=== PATIENT | male | born 1955 | race Caucasian/White ===

== ENCOUNTER 2023-02-16 12:12 | Inpatient (IN) | payer OTHER ==
[~2023-02-16] VITALS: Ht 170.2 cm; Wt 127.0 kg
[2023-02-16 12:25] VITALS: BP_SYST 142; PULSE 85; RESP 18; TEMP 98.3; O2SAT 98
--- NOTE | 2023-02-16 12:59 | NUR ---
Pt bib self from home with bedside. Pt is aaox3, with bilateral lower leg swelling. Pt has fungus to toe nails. Pt states maggots underneath nail bed.
--- NOTE | 2023-02-16 13:30 | NUR ---
ER DR. PEREZ AT THE BEDSIDE EXAMINING PT
--- NOTE | 2023-02-16 13:50 | NUR ---
Blood cultures drawn, prior to administration of antibiotic.
[2023-02-16 14:13] LABS: BASOPHILS # (AUTO) 0.1 K/uL (0.0-0.2); BASOPHILS % (AUTO) 0.7 % (0.0-2.0); EOSINOPHILS # (AUTO) 0.6 K/uL (0.0-0.4); HEMATOCRIT 40.5 % (36-54); HEMOGLOBIN 13.9 g/dL (14.0-18.0); LYMPHOCYTES # (AUTO) 1.3 K/uL (1.0-5.5); LYMPHOCYTES % (AUTO) 17.2 % (20.5-51.5); MEAN CORPUSCULAR HEMOGLOBIN 31 pg (27-31); MEAN CORPUSCULAR HGB CONC 34 % (32-36); MEAN CORPUSCULAR VOLUME 91 fL (79.0-98.0); MONOCYTES # (AUTO) 0.9 K/uL (0.0-1.0); MONOCYTES % (AUTO) 11.9 % (1.7-9.3); NEUTROPHILS # (AUTO) 4.8 K/uL (1.8-7.7); NEUTROPHILS % (AUTO) 62.2 % (40.0-70.0); PLATELET COUNT (AUTO) 313 K/uL (130-430); RED BLOOD CELL COUNT(AUTO) 4.48 MIL/uL (4.2-6.2); WHITE BLOOD COUNT (AUTO) 7.8 K/uL (4.8-10.8)
[2023-02-16 14:34] LABS: CALCIUM 9.7 mg/dL (8.4-11.0); CREATININE 1.2 mg/dL (0.55-1.30)
[2023-02-16 14:39] LABS: ALBUMIN 3.9 g/dL (3.4-4.8); TOTAL BILIRUBIN 0.3 mg/dL (0.0-1.0)
[2023-02-16] MEDS ORDERED: ACETAMINOPHEN 325 MG TABLET PO PRN ×2 (15:45→16:00)
[2023-02-16] MEDS ORDERED: MORPHINE 2 MG/ML INJ. SYRINGE IVP PRN (15:45)
[2023-02-16] MEDS ORDERED: HYDROcodone/ACETAMIN 5-325 MG TAB (NORCO/ VICODIN) PO PRN (15:45)
--- NOTE | 2023-02-16 16:16 | NUR ---
Admit bed requested Patient will be admitted to care of Adrianna Montez Admitted to [facility] unit. Diagnosis CELLULITIS Inpatient (Yes or No) YES Observation (Yes or No) NO Orientation concerns or request close to nursing station (Yes or No) NO Covid Status NA On vent or bipap NO Isolation requirements NO Needs a sitter NO From Home (Yes or if No enter name of facility) HOME Requires Dialysis (Yes or No) NO Med Rec Completed (Yes of No) YES
[2023-02-16] MEDS ORDERED: METF-381 PO (16:19)
[2023-02-16] MEDS ORDERED: SITA1TBM4 PO (16:19)
[2023-02-16] MEDS ORDERED: GLIP10TA11 PO (16:19)
[2023-02-16] MEDS ORDERED: ALBU90AE2 INH (16:19)
--- NOTE | 2023-02-16 16:19 | NUR ---
Medication reconciliation completed with information provided by PATIENT. Any prior medication reconciliation on file was reviewed and corrected.
[2023-02-16] MEDS ORDERED: cefTRIAXone 1 GM IVPB PREMIX 50 ML IV ONE (16:30)
[2023-02-16] MEDS: cefTRIAXone 1 GM IVPB PREMIX 50 ML IV SCH (17:00)
--- NOTE | 2023-02-16 17:10 | NUR ---
CONTACTED [facility] TO GIVE PT REPORT NO ANSWER AT EXT [phone]
--- NOTE | 2023-02-16 17:56 | NUR ---
Patient will be admitted to care of [facility]. Admitted to MED SURG unit. Will go to room 107 A MEDSURG. Belongings list completed. Complete and up to date summary report printed. SBAR report to be given at bedside with opportunity for questions.
[2023-02-16 18:47] VITALS: BP_SYST 135; PULSE 75; RESP 19; TEMP 97.2; O2SAT 94
--- NOTE | 2023-02-16 18:48 | NUR ---
pt arrived to floor from ed @181. VSS, no c/o pain or SOB. Dr. Bettencourt paged for admission orders @4638. oriented to room, call martinez in place, fall precautions in place.
[2023-02-16 19:00] VITALS: BP_SYST 128; PULSE 72; RESP 12; TEMP 97; O2SAT 96
[2023-02-16 20:00] VITALS: BP_SYST 128; PULSE 72; RESP 12; TEMP 97; O2SAT 96
[2023-02-17] VITALS: BP_SYST 127; PULSE 71; RESP 12; TEMP 96.7; O2SAT 94
--- NOTE | 2023-02-17 03:04 | NUR ---
Consultation Paged Reason for Consultation: Cellulitis Was consult called: Y Person who was notified: Chloe Consulting Physician: Mendez Seay Ordering Physician: Adrianna Dodd
--- NOTE | 2023-02-17 04:32 | NUR ---
Dr. Ashraf surgical consult called back for the patient.
[2023-02-17 04:56] LABS: BASOPHILS # (AUTO) 0.1 K/uL (0.0-0.2); BASOPHILS % (AUTO) 0.9 % (0.0-2.0); EOSINOPHILS # (AUTO) 0.6 K/uL (0.0-0.4); EOSINOPHILS % (AUTO) 9.1 % (0.0-4.0); HEMATOCRIT 39.4 % (36-54); HEMOGLOBIN 13.4 g/dL (14.0-18.0); LYMPHOCYTES # (AUTO) 1.5 K/uL (1.0-5.5); LYMPHOCYTES % (AUTO) 22.4 % (20.5-51.5); MEAN CORPUSCULAR HEMOGLOBIN 31 pg (27-31); MEAN CORPUSCULAR HGB CONC 34 % (32-36); MEAN CORPUSCULAR VOLUME 90 fL (79.0-98.0); MONOCYTES # (AUTO) 0.9 K/uL (0.0-1.0); MONOCYTES % (AUTO) 13.3 % (1.7-9.3); NEUTROPHILS # (AUTO) 3.8 K/uL (1.8-7.7); NEUTROPHILS % (AUTO) 54.3 % (40.0-70.0); PLATELET COUNT (AUTO) 281 K/uL (130-430); RED BLOOD CELL COUNT(AUTO) 4.38 MIL/uL (4.2-6.2); WHITE BLOOD COUNT (AUTO) 6.9 K/uL (4.8-10.8)
[2023-02-17 05:28] LABS: ALBUMIN 3.5 g/dL (3.4-4.8); CALCIUM 8.6 mg/dL (8.4-11.0); CREATININE 1.26 mg/dL (0.55-1.30); TOTAL BILIRUBIN 0.4 mg/dL (0.0-1.0)
[2023-02-17 07:15] VITALS: BP_SYST 141; PULSE 67; RESP 16; TEMP 97.8; O2SAT 96
--- NOTE | 2023-02-17 07:15 | NUR ---
OPENING NOTES PATIENT IS RESTING, BREATHING UNLABORED ON RA. NO PAIN, NO DISTRESS, NO SOB REPORTED. ALL NEED MET AT THIS TIME. SAFETY PRECAUTION IN PLACE. ENCOURAGE PATIENT TO USE CALL LIGHT. CALL LIGHT WITHIN REACH. BED ALARM ON. BED LOCKED IN LOWEST POSITION. WILL CONTINUE WITH PLAN OF CARE.
[2023-02-17] MEDS ORDERED: D5W 1,000 ML IV PRN (08:00)
[2023-02-17] MEDS ORDERED: GLUCOSE (DEXTROSE) ORAL GEL -Adults PO PRN (08:00)
[2023-02-17] MEDS ORDERED: DEXTROSE 50% JECT 50 ML DISP.SYRIN IVP PRN (08:00)
[2023-02-17] MEDS: INSULIN LISPRO SLIDING SCALE 100 UNITS/ML, 3 ML VIAL (humaLOG) SUBCUT PRN ×3 (09:25→17:39)
--- NOTE | 2023-02-17 11:16 | NUR ---
CONSULTATION PAGED REASON FOR CONSULTATION: CELLULITIS WAS CONSULT CALLED? Y PERSON WHO WAS NOTIFIED: NAEL CONSULTING PHYSICIAN: ELIE CAMEJO TRANSFER TABLE OPERATOR HELPER SPECIALTY: INFECTIOUS DISEASE TRANSFER TABLE OPERATOR HELPER PHONE NUMBER: [phone] REQUESTING PHYSICIAN: ANETA SABILLON
--- NOTE | 2023-02-17 11:21 | NUR ---
CONSULTATION PAGED REASON FOR CONSULTATION: CELLULITIS WAS CONSULT CALLED? Y PERSON WHO WAS NOTIFIED: INÉS CONSULTING PHYSICIAN: CARMENCITA WRAY MEDICAL TRANSCRIPTION EDITOR SPECIALTY:SURGEON MEDICAL TRANSCRIPTION EDITOR PHONE NUMBER: [phone] REQUESTING PHYSICIAN: ARVIN SABILLON
[2023-02-17] MEDS: NACL 0.9% 1,000 ML IV SCH ×2 (11:26→21:54)
--- NOTE | 2023-02-17 12:00 | NUR ---
ROUNDING NOTES PATIENT IS RESTING, NO PAIN, NO DISTRESS, NO SOB NOTED. ALL NEED MET AT THIS TIME. SAFETY PRECAUTION IN PLACE. CALL LIGHT WITHIN REACH. BED ALARM ON. BED LOCKED IN LOWEST POSITION. WILL CONTINUE WITH PLAN OF CARE.
--- NOTE | 2023-02-17 12:54 | NUR ---
WOUND EVALUATION: Wound Consult received from Dr. Saad Bettencourt. Thank you, Dr. Bettencourt, for the consult. Patient received in a Kalpesh Bed with an IsoFlex RAFAEL mattress, awake, alert, and oriented. Patient is able to turn in bed and transfer independently. Ian Score is a 23. Past Medical History: Diabetes Mellitus, Neuropathy, Hypertension. Recent Labs: WBC 6.9, RBC 4.38, Hgb 13.4, Hct 39.4, Na 133, BUN 23, Creat 1.26, GFR 60, Gluc 174, STP 8.4. Microbiology: Blood culture results x 2 in progress. Urine culture results in progress. Intrinsic factors that delay wound healing: Diabetes Mellitus, Neuropathy, Hyperglycemia. Extrinsic factors that delay wound healing: Decreased mobility. Dr. Peres is on surgical consent. Wound Assessment: 1. Right Great Toe: Wound, present on admission. Wound bed is now closed. No odor, no drainage, no weeping. Toe has mild edema, is shiny, has erythema, and has mild calor. Recommend: [place] perimeter of toe nail/toe nail bed with Betadine. No dressing needed. Perform site care BID. Also recommend: Encourage and assist patient as needed with repositioning every 2 hours with pillow support and off-load pressure areas with pillows for pressure re-distribution. Offload, elevate and float bilateral heels with pillows. Perform skin care and monitor skin integrity Q shift.
[2023-02-17] MEDS: cefTRIAXone 1 GM IVPB PREMIX 50 ML IV SCH (17:46)
[2023-02-17 18:43] VITALS: BP_SYST 141; PULSE 67; RESP 16; TEMP 97.8; O2SAT 96
[2023-02-17 18:44] VITALS: BP_SYST 142; PULSE 95; RESP 16; TEMP 95.2; O2SAT 95
[2023-02-17 19:00] VITALS: O2SAT 96
--- NOTE | 2023-02-17 19:00 | NUR ---
ClOSING NOTES PATIENT IS RESTING, NO PAIN, NO DISTRESS, NO SOB NOTED. ALL NEED MET AT THIS TIME. SAFETY PRECAUTION IN PLACE. CALL LIGHT WITHIN REACH. BED ALARM ON. BED LOCKED IN LOWEST POSITION. WILL ENDORSE TO ASSEMBLY LEAD PERSON NURSE.
[2023-02-17 20:00] VITALS: BP_SYST 127; PULSE 74; RESP 18; TEMP 97.2; O2SAT 94
[2023-02-18 00:30] VITALS: BP_SYST 144; PULSE 69; RESP 19; TEMP 97; O2SAT 98
[2023-02-18] MEDS: INSULIN LISPRO SLIDING SCALE 100 UNITS/ML, 3 ML VIAL (humaLOG) SUBCUT PRN ×3 (00:43→14:07)
[2023-02-18 05:58] LABS: BASOPHILS % (AUTO) 0.7 % (0.0-2.0); EOSINOPHILS # (AUTO) 0.6 K/uL (0.0-0.4); EOSINOPHILS % (AUTO) 9.4 % (0.0-4.0); HEMATOCRIT 39.2 % (36-54); HEMOGLOBIN 13.3 g/dL (14.0-18.0); LYMPHOCYTES # (AUTO) 1.4 K/uL (1.0-5.5); MEAN CORPUSCULAR HEMOGLOBIN 31 pg (27-31); MEAN CORPUSCULAR HGB CONC 34 % (32-36); MEAN CORPUSCULAR VOLUME 91 fL (79.0-98.0); MONOCYTES # (AUTO) 0.9 K/uL (0.0-1.0); MONOCYTES % (AUTO) 13.9 % (1.7-9.3); NEUTROPHILS # (AUTO) 3.3 K/uL (1.8-7.7); PLATELET COUNT (AUTO) 261 K/uL (130-430); RED BLOOD CELL COUNT(AUTO) 4.33 MIL/uL (4.2-6.2); RED CELL DISTRIBUTION WIDTH 12.9 % (9.0-15.0); WHITE BLOOD COUNT (AUTO) 6.2 K/uL (4.8-10.8)
[2023-02-18 06:07] LABS: CALCIUM 8.5 mg/dL (8.4-11.0); CREATININE 1.23 mg/dL (0.55-1.30)
[2023-02-18 08:00] VITALS: O2SAT 96
--- NOTE | 2023-02-18 08:00 | NUR ---
received patient from pm nurse, alert and oriented, able to verbalize needs, no c/o pain or discomfort at this time, iv in lh patent and infusing ns @ 100, wound on great toe open to air, will assume all care of patient
[2023-02-18] MEDS: NACL 0.9% 1,000 ML IV SCH ×2 (08:35→16:57)
[2023-02-18 12:00] VITALS: BP_SYST 142; PULSE 72; RESP 20; TEMP 98; O2SAT 98
[2023-02-18] MEDS: PIPERACILLIN/TAZO 4.5GM/DEX-IS 100 ML IV SCH ×2 (14:09→21:04)
--- NOTE | 2023-02-18 17:00 | NUR ---
iv in left hand leaking, no swelling pain or sign of infiltrate noted, new iv started in lfa
--- NOTE | 2023-02-18 17:58 | NUR ---
patient resting comfortably in bed, no c/o pain or discomfort at this time, iv patent and infusing ns @100ml/hr, will endorse care to pm nurse
[2023-02-18 18:00] VITALS: BP_SYST 140; PULSE 74; RESP 18; TEMP 97.9; O2SAT 95
[2023-02-18 20:00] VITALS: BP_SYST 129; PULSE 74; RESP 18; TEMP 97
[2023-02-19] MEDS: INSULIN LISPRO SLIDING SCALE 100 UNITS/ML, 3 ML VIAL (humaLOG) SUBCUT PRN ×3 (00:02→11:59)
[2023-02-19 00:04] VITALS: BP_SYST 122; PULSE 72; RESP 18; TEMP 96.8; O2SAT 95
[2023-02-19] MEDS: PIPERACILLIN/TAZO 4.5GM/DEX-IS 100 ML IV SCH ×3 (06:08→22:00)
[2023-02-19] MEDS: NACL 0.9% 1,000 ML IV SCH ×3 (06:12→23:15)
--- NOTE | 2023-02-19 06:12 | NUR ---
Closing notes Pt AAOx4, no s/s distress. Blood sugar checked 190, 2 units Humalog administered per protocol. R. toe no drainage, no odor, EMILEE. Call light within reach. To endorse to AM nurse.
[2023-02-19 07:04] LABS: BASOPHILS % (AUTO) 0.8 % (0.0-2.0); EOSINOPHILS # (AUTO) 0.6 K/uL (0.0-0.4); EOSINOPHILS % (AUTO) 9.3 % (0.0-4.0); HEMATOCRIT 39.1 % (36-54); HEMOGLOBIN 13.3 g/dL (14.0-18.0); LYMPHOCYTES # (AUTO) 1.4 K/uL (1.0-5.5); LYMPHOCYTES % (AUTO) 23.4 % (20.5-51.5); MEAN CORPUSCULAR HEMOGLOBIN 31 pg (27-31); MEAN CORPUSCULAR HGB CONC 34 % (32-36); MEAN CORPUSCULAR VOLUME 91 fL (79.0-98.0); MONOCYTES # (AUTO) 0.8 K/uL (0.0-1.0); NEUTROPHILS # (AUTO) 3.2 K/uL (1.8-7.7); NEUTROPHILS % (AUTO) 52.5 % (40.0-70.0); PLATELET COUNT (AUTO) 274 K/uL (130-430); RED BLOOD CELL COUNT(AUTO) 4.32 MIL/uL (4.2-6.2); RED CELL DISTRIBUTION WIDTH 12.8 % (9.0-15.0)
[2023-02-19 07:26] LABS: CALCIUM 8.5 mg/dL (8.4-11.0); CREATININE 1.29 mg/dL (0.55-1.30)
[2023-02-19 07:27] LABS: ERYTHROCYTE SEDIMENTATION RATE 26 MM/HR (0-15)
[2023-02-19 08:00] VITALS: BP_SYST 128; PULSE 76; RESP 17; TEMP 97.3; O2SAT 97
--- NOTE | 2023-02-19 08:00 | NUR ---
OPENING NOTES: RECEIVED BEDSIDE SBAR FROM PM SHIFT NURSE, NO S/S OF ANY DISTRESS, NON LABOR BREATHING ABLE TO MAKE ALL NEEDS KNOWN, BED AT LOW AND LOCKED POSITION CALL LIGHT IN REACH, ALL SAFETY CHECKS DONE AND WILL DO THOUGHT THE DAY, WILL MONITOR AND GIVE MEDS PER ORDERS.
[2023-02-19 10:01] VITALS: O2SAT 97
[2023-02-19 13:21] VITALS: BP_SYST 129; PULSE 68; RESP 16; TEMP 96.8; O2SAT 96
[2023-02-19 18:21] VITALS: BP_SYST 132; PULSE 65; RESP 18; TEMP 97.1; O2SAT 95
--- NOTE | 2023-02-19 18:46 | NUR ---
CLOSING NOTES: PATIENT REMAINED STABLE THOUGHT THE DAY, NO S/S OF ANY DISTRESS, NON LABOR BREATHING, ALL NEEDS WHERE MET TODAY, BED AT LOW AND LOCKED POSITION CALL LIGHT IN REACH, RESTING IN BED WATCHING TV, WILL GIVE PM SHIFT NURSE BEDSIDE SBAR.
[2023-02-19 20:00] VITALS: BP_SYST 141; PULSE 73; RESP 17; TEMP 96.7; O2SAT 95
--- NOTE | 2023-02-19 22:44 | NUR ---
RD Recommendations *Continue on Consistent Carb Diet per MD Rx *Monitor PO intakes, GI, skin, & labs Please refer to RD Assessment (02/19/23) for more details. LEEANN STOCK Addendum: 02/19/23 at [address] Amended: Links added.
[2023-02-20 00:15] VITALS: BP_SYST 132; PULSE 74; RESP 17; TEMP 97.2
[2023-02-20] MEDS: INSULIN LISPRO SLIDING SCALE 100 UNITS/ML, 3 ML VIAL (humaLOG) SUBCUT PRN ×3 (00:24→12:26)
[2023-02-20 06:08] LABS: BASOPHILS % (AUTO) 0.7 % (0.0-2.0); EOSINOPHILS # (AUTO) 0.6 K/uL (0.0-0.4); EOSINOPHILS % (AUTO) 9.6 % (0.0-4.0); HEMATOCRIT 39.9 % (36-54); HEMOGLOBIN 13.4 g/dL (14.0-18.0); LYMPHOCYTES # (AUTO) 1.4 K/uL (1.0-5.5); LYMPHOCYTES % (AUTO) 23.5 % (20.5-51.5); MEAN CORPUSCULAR HEMOGLOBIN 31 pg (27-31); MEAN CORPUSCULAR HGB CONC 34 % (32-36); MEAN CORPUSCULAR VOLUME 91 fL (79.0-98.0); MONOCYTES # (AUTO) 0.8 K/uL (0.0-1.0); MONOCYTES % (AUTO) 12.7 % (1.7-9.3); NEUTROPHILS # (AUTO) 3.2 K/uL (1.8-7.7); NEUTROPHILS % (AUTO) 53.5 % (40.0-70.0); PLATELET COUNT (AUTO) 269 K/uL (130-430); WHITE BLOOD COUNT (AUTO) 6.1 K/uL (4.8-10.8)
[2023-02-20 06:13] LABS: ERYTHROCYTE SEDIMENTATION RATE 19 MM/HR (0-15)
[2023-02-20 06:26] LABS: CALCIUM 8.6 mg/dL (8.4-11.0); CREATININE 1.35 mg/dL (0.55-1.30)
[2023-02-20] MEDS: PIPERACILLIN/TAZO 4.5GM/DEX-IS 100 ML IV SCH (06:38)
[2023-02-20 08:00] VITALS: BP_SYST 144; PULSE 69; RESP 18; TEMP 97.1; O2SAT 97
[2023-02-20] MEDS: NACL 0.9% 1,000 ML IV SCH (09:15)
--- NOTE | 2023-02-20 10:33 | NUR ---
PER DR LOURDES FUNEZ TO D/C HOME, WITH IV, [facility] FOR 7 DAYS OF IV MEDS. PATIENT AWARE. F/U WITH DR FREED IN 1 WEEK
[2023-02-20] MEDS ORDERED: HYDR-3917 PO (10:36)
[2023-02-20 10:56] VITALS: BP_SYST 132; PULSE 78; RESP 18; TEMP 97.9; O2SAT 99
[2023-02-20 11:37] VITALS: O2SAT 98
[2023-02-20] MEDS ORDERED: ERTAPENEM SODIUM 1 GM in NS 50 ML IV SCH (13:00)
--- NOTE | 2023-02-20 17:39 | NUR ---
BS 151 PATIENT REFUSES INSULIN GOING HOME
--- NOTE | 2023-02-20 18:39 | NUR ---
CLOSING NOTES: PATIENT REMAINED STABLE THOUGHT THE DAY NON LABOR BREATHING, NO S/S OF ANY DISTRESS ALL NEEDS WHERE MADE KNOWN, BED AT LOW AND LOCKED POSITION, CALL LIGHT IN REACH, WILL GIVE PM SHIFT NURSE BEDSIDE SBAR.
[2023-02-20 20:00] VITALS: BP_SYST 139; PULSE 70; RESP 18; TEMP 98.1; O2SAT 92
--- NOTE | 2023-02-20 20:00 | NUR ---
NURSE REPORT REPORT OBTAINED FROM DAY SHIFT NURSE AND THIS NURSE ASSUMED CARE. VSS. AFEB. NEEDS MIDLINE BEFORE DISCHARGE HOME. AT BEDSIDE.
[2023-02-20 21:00] VITALS: BP_SYST 139; PULSE 70; RESP 18; TEMP 98.1; O2SAT 92
--- NOTE | 2023-02-20 21:45 | NUR ---
NURSE DISCHARGE NOTES D/C INSTRUCTIONS GIVEN. PATIENT TO CALL THE [facility] FOR ADDRESS IN [place]. APPT IS AT 945 AM. SL REMOVED FROM L FOREARM AND COBAN APPLIED SINCE TAKING THE TAPE OFF WITH THE SL WAS PAINFUL DUE TO PATIENT HAVING PLENTY OF HAIR. DC'D BY W/C WITH THIS NURSE TO CAR. FLAKITO ROD RN
== END 2023-02-20 23:25 | disposition home health service (06) | DRG 603 ==
LOC: SED 12:12 → SMU 15:35
PROVIDERS: ADMIT Specialist; ATTEND Specialist
PROC: 05HY33Z Insertion of Infusion Device into Upper Vein, Percutaneous Approach (ICD-10-PCS; principal; 2023-02-20)
PROC: B54MZZA Ultrasonography of Right Upper Extremity Veins, Guidance (ICD-10-PCS; 2023-02-20)
DX: L03.031 Cellulitis of right toe (principal); E87.1 Hypo-osmolality and hyponatremia; Z68.41 Body mass index [BMI] 40.0-44.9, adult; E11.65 Type 2 diabetes mellitus with hyperglycemia; I10 Essential (primary) hypertension; J45.909 Unspecified asthma, uncomplicated; E66.01 Morbid (severe) obesity due to excess calories; B96.20 Unspecified Escherichia coli [E. coli] as the cause of diseases classified elsewhere; B87.89 Myiasis of other sites; E11.40 Type 2 diabetes mellitus with diabetic neuropathy, unspecified; R79.89 Other specified abnormal findings of blood chemistry; L97.519 Non-pressure chronic ulcer of other part of right foot with unspecified severity; E11.621 Type 2 diabetes mellitus with foot ulcer; S91.101A Unspecified open wound of right great toe without damage to nail, initial encounter; X58.XXXA Exposure to other specified factors, initial encounter; Y93.89 Activity, other specified; Y92.89 Other specified places as the place of occurrence of the external cause; Y99.8 Other external cause status; Z79.899 Other long term (current) drug therapy; Z79.84 Long term (current) use of oral hypoglycemic drugs
CPT/HCPCS: 36415; 73720; 80048; 80053; 83605; 85025; 85651-TC; 87040; 87070-TC; 87186-TC; 96365; 99285; J0696; J1335; J2543; J7030